=== PATIENT | male | born 1990 | race Caucasian/White ===

== ENCOUNTER 2021-01-19 16:04 | Emergency (ER) | payer SELFPAY ==
[~2021-01-19] VITALS: Ht 177.8 cm; Wt 100.7 kg
[2021-01-19 16:29] VITALS: BP 157/94
--- NOTE | 2021-01-19 16:50 | NUR ---
EMT AT BEDSIDE, EKG DONE.
--- NOTE | 2021-01-19 16:52 | NUR ---
EVALUATING PT AT BEDSIDE
--- NOTE | 2021-01-19 16:52 | NUR ---
PT AMBULATED TO BED 7
--- NOTE | 2021-01-19 16:53 | NUR ---
30 YO MALE BIB SELF. C/O CHEST PAIN 4/10 SHARP/STABBING PAIN. NON RADIATING. PT STATES HE TOOK 2 TRAMADOL MEDICATION AT APPROX 230, 30 MIN AFTER PATIENT FELT "LIKE HIS HEART WAS RACING, SWEATING, AND FELT SHARP STABBING CHEST PAIN". AT THIS TIME PATIENT STATES PAIN HAS GOTTEN BETTER. EKG DONE- SINUS TACHY. DENIES SOB, CHILLS, FEVER, N/V. A&OX4, RR EVEN AND UNLABORED. PMH: DENIES ALLERGIES: NKDA
[2021-01-19] MEDS ORDERED: NACL 0.9% 1,000 ML IV ONE (17:10)
[2021-01-19] MEDS ORDERED: LEVALBUTEROL 1.25 MG/0.5 ML NEBU INH ONE ×2 (17:10)
--- NOTE | 2021-01-19 17:10 | NUR ---
RT at bedside for neb treatment
--- NOTE | 2021-01-19 17:12 | NUR ---
RAD AT BEDSIDE, XRAY DONE
--- NOTE | 2021-01-19 17:33 | NUR ---
PATIENT AMBULATED TO BT, STEADY GAIT.
--- NOTE | 2021-01-19 17:40 | NUR ---
pt returned from bathroom to bed 7, steady gait.
--- NOTE | 2021-01-19 17:48 | NUR ---
MD PRECIADO RE-EVAULATING PT AT BEDSIDE.
--- NOTE | 2021-01-19 18:00 | NUR ---
PT AMBULATED TO THE BATHROOM, STEADY GAIT.
--- NOTE | 2021-01-19 18:08 | NUR ---
PATIENT RETURNED FROM BT TO BED 7, STEADY GAIT.
[2021-01-19 18:28] VITALS: BP 157/94
--- NOTE | 2021-01-19 18:28 | NUR ---
Patient discharged with v/s stable. Written and verbal after care instructions given and explained. Patient verbalized understanding. Ambulatory with steady gait. All questions addressed prior to discharge. Advised to follow up with PMD.
== END 2021-01-19 18:28 | disposition home or self-care (01) ==
LOC: MED 16:04
DX: R00.2 Palpitations (principal); T40.425A Adverse effect of tramadol, initial encounter; R42 Dizziness and giddiness; F12.90 Cannabis use, unspecified, uncomplicated; Y92.89 Other specified places as the place of occurrence of the external cause
CPT/HCPCS: 71045; 93005; 94640; 94760; 96360; 99283; J7030; J7612